=== PATIENT | female | born 1950 | race Caucasian/White ===

== ENCOUNTER 2016-12-23 07:39 | Day surgery (SDC) | payer BC ==
[2016-12-23] MEDS ORDERED: fentaNYL 100 MCG/2 ML SDV ONE (07:52)
[2016-12-23] MEDS ORDERED: Midazolam 1 MG/ML 2 ML SDV ONE (07:52)
[2016-12-23] MEDS ORDERED: Propofol 200 MG/20 ML SDV ONE (07:52)
[2016-12-23] MEDS ORDERED: Lidocaine 1% 2 ML ONE (08:53)
[2016-12-23] MEDS ORDERED: Lactated Ringers 1,000 ML IV SCH (09:00)
[2016-12-23 10:29] VITALS: BP 146/89
--- NOTE | 2016-12-23 14:59 | OR ---
DATE OF PROCEDURE: 12/23/2016 PREOPERATIVE DIAGNOSIS: Colon cancer screening. POSTOPERATIVE DIAGNOSIS: Diverticulosis. PROCEDURE: Colonoscopy to the cecum. ANESTHESIA: IV anesthesia with monitored anesthesia care. INDICATIONS: This 66-year-old white female is referred for a colonoscopy for colon cancer screening. She says her last colonoscopic exam was done 10 years ago. I counseled her for the procedure including risks and alternatives, and she gave her informed consent to proceed. DESCRIPTION OF PROCEDURE: The patient was placed in the left lateral decubitus position. IV anesthesia was administered by the Anesthesia Service. Time-out was held. A rectal exam was performed, which was unremarkable. The flexible video Olympus colonoscope was introduced through her anus, up her rectum, and out her colon all the way to the cecum. En route, we saw a few scattered left-sided diverticula. Once the cecum was reached, the scope was slowly withdrawn examining the mucosa throughout. No mucosal abnormalities were noted, other than the left-sided diverticula. There was no bleeding or inflammation associated with any of them. The scope was retroflexed in the rectum with the distal rectum appearing unremarkable. The scope was straightened and removed. She tolerated the procedure well. Alberto Claros MD /[id number]
== END 2016-12-23 10:55 | disposition home or self-care (01) ==
LOC: JP.SDS 07:39
PROVIDERS: ATTEND Surgery
DX: Z12.11 Encounter for screening for malignant neoplasm of colon (principal); K57.30 Diverticulosis of large intestine without perforation or abscess without bleeding; I10 Essential (primary) hypertension; K21.9 Gastro-esophageal reflux disease without esophagitis; Z86.73 Personal history of transient ischemic attack (TIA), and cerebral infarction without residual deficits; E11.9 Type 2 diabetes mellitus without complications
CPT/HCPCS: 45378; J2250; J2704; J3010; J7120

== ENCOUNTER 2023-04-17 17:07 | Inpatient (IN) | payer MEDICARE ==
[~2023-04-17 17:07] MED LIST: Non-Formulary Medication 1 Each (Brimonidine [Alphagan P 0.1% Ophth Soln] 10 ML Bottle) OP SCH
[2023-04-17] MEDS ORDERED: Sodium Chloride 0.9% 10 ML Syringe FLUSH PRN (18:22)
[2023-04-17] MEDS ORDERED: Ondansetron 4 MG/2 ML SDV IVPUSH ONE (18:24)
[2023-04-17] MEDS ORDERED: Sodium Chloride 0.9% 1,000 ML IV SCH (18:30)
[2023-04-17 18:43] LABS: BASOPHILS ABSOLUTE AUTO 0.03 K/uL (0.00-0.10); BASOPHILS PERCENT AUTO 0.2 % (0.1-1.3); EOSINOPHILS ABSOLUTE AUTO 0.23 K/uL (0.00-0.40); EOSINOPHILS PERCENT AUTO 1.5 % (0.0-5.4); HEMATOCRIT 47.9 % (34.3-46.0); HEMOGLOBIN 16.6 g/dL (11.2-15.5); IMMATURE GRAN ABSOLUTE AUTO 0.07 K/uL (0.00-0.23); IMMATURE GRAN PERCENT AUTO 0.4 % (0.0-0.7); LYMPHOCYTES PERCENT AUTO 14.1 % (11.4-47.7); MEAN CORPUSCULAR HEMOGLOBIN 28.9 pg (31.6-35.5); MEAN CORPUSCULAR HGB CONC 34.7 g/dL (31.6-35.5); MEAN CORPUSCULAR VOLUME 83.4 fL (81.4-99.0); MONOCYTES ABSOLUTE AUTO 1.19 K/uL (0.20-0.90); MONOCYTES PERCENT AUTO 7.6 % (3.3-12.6); NEUTROPHILS ABSOLUTE AUTO 11.84 K/uL (1.0-7.6); NEUTROPHILS PERCENT AUTO 76.2 % (40.0-78.1); PLATELET COUNT,PLT 337 K/uL (130-375); RED BLOOD CELL COUNT 5.74 M/uL (3.77-5.24); WHITE BLOOD CELL COUNT,WBC 15.6 K/uL (3.2-11.0)
[2023-04-17 19:03] LABS: PROTHROMBIN TIME 10.3 sec (9.2-10.6); PTT,PARTIAL THROMBOPLSTIN TIME 24.3 sec (21.8-27.3)
[2023-04-17 19:04] LABS: ALANINE AMINOTRANSFERASE,ALT 31 U/L (12-78); ALBUMIN 3.7 g/dL (3.4-5.0); ALKALINE PHOSPHATASE 82 U/L (46-116); ASPARTATE AMNIOTRANSFERASE,AST 20 U/L (15-37); BILIRUBIN TOTAL 0.5 mg/dL (0.2-1.0); BLOOD UREA NITROGEN,BUN 14 mg/dL (7-18); C-REACTIVE PROTEIN 2.37 mg/dL (0.0-0.3); CALCIUM 8.9 mg/dL (8.5-10.1); CARBON DIOXIDE,CO2 24 mmol/L (21-32); CHLORIDE,CL 99 mmol/L (100-108); CREATININE 0.7 mg/dL (0.6-1.0); EST CRCL DRUG DOSING (CG) 66.33 mL/min; ESTIMATED GFR 92 mL/min (>60); GLUCOSE RANDOM 164 mg/dL (74-106); POTASSIUM,K 3.5 mmol/L (3.6-5.2); PROTEIN TOTAL,TP 7.3 g/dL (6.4-8.2); SODIUM,NA 136 mmol/L (140-148)
[2023-04-17 19:05] LABS: ANION GAP 16.5 mmol/L (5.0-14.0)
[2023-04-17] MEDS ORDERED: Iopamidol 612 MG/ML 100 ML Bottle IV SCH (19:15)
[2023-04-17] MEDS ORDERED: Sodium Chloride 0.9% 50 ML IV SCH (19:15)
[2023-04-17 20:15] LABS: LACTIC ACID 1.1 mmol/L (0.4-2.0)
[2023-04-17] MEDS ORDERED: Acetaminophen 325 MG Tab PO ONE (20:29)
[2023-04-17] MEDS ORDERED: Ondansetron 4 MG Tab.DIS PO PRN (22:21)
[2023-04-17] MEDS ORDERED: Naloxone 0.4 MG/ML SDV IVPUSH PRN (22:21)
[2023-04-17] MEDS ORDERED: Morphine 2 MG/ML SYRINGE IVPUSH PRN (22:21)
[2023-04-17] MEDS ORDERED: Ketotifen 0.025% Ophth Soln 5 ML Bottle EYEBOTH PRN (22:27)
[2023-04-17] MEDS ORDERED: Albuterol 6.7 GM Inhaler INH PRN (22:27)
[2023-04-17] MEDS ORDERED: valACYclovir 1,000 MG Tab PO PRN (22:27)
[2023-04-17] MEDS: Temazepam 15 MG Cap PO PRN (23:35)
[2023-04-17] MEDS: Pantoprazole 40 MG Vial IV SCH (23:35)
[2023-04-17] MEDS: Latanoprost 0.005% Ophth Soln 2.5 ML Bottle EYEBOTH SCH (23:48)
[2023-04-17] MEDS: Sodium Chloride 0.9% 1,000 ML IV SCH (23:52)
[2023-04-18] MEDS: Acetaminophen/HYDROcodone 325-5 MG Tab PO PRN ×3 (00:19→13:15)
[2023-04-18] MEDS: diphenhydrAMINE 25 MG Cap PO PRN ×3 (00:19→13:18)
[2023-04-18 06:01] LABS: BASOPHILS ABSOLUTE AUTO 0.04 K/uL (0.00-0.10); BASOPHILS PERCENT AUTO 0.4 % (0.1-1.3); EOSINOPHILS ABSOLUTE AUTO 0.46 K/uL (0.00-0.40); EOSINOPHILS PERCENT AUTO 4.3 % (0.0-5.4); HEMATOCRIT 41.5 % (34.3-46.0); HEMOGLOBIN 14.2 g/dL (11.2-15.5); IMMATURE GRAN ABSOLUTE AUTO 0.05 K/uL (0.00-0.23); IMMATURE GRAN PERCENT AUTO 0.5 % (0.0-0.7); LYMPHOCYTES ABSOLUTE AUTO 2.52 K/uL (0.8-3.3); LYMPHOCYTES PERCENT AUTO 23.8 % (11.4-47.7); MEAN CORPUSCULAR HEMOGLOBIN 29.2 pg (31.6-35.5); MEAN CORPUSCULAR HGB CONC 34.2 g/dL (31.6-35.5); MEAN CORPUSCULAR VOLUME 85.4 fL (81.4-99.0); MONOCYTES ABSOLUTE AUTO 0.79 K/uL (0.20-0.90); MONOCYTES PERCENT AUTO 7.4 % (3.3-12.6); NEUTROPHILS ABSOLUTE AUTO 6.75 K/uL (1.0-7.6); NEUTROPHILS PERCENT AUTO 63.6 % (40.0-78.1); PLATELET COUNT,PLT 269 K/uL (130-375); RED BLOOD CELL COUNT 4.86 M/uL (3.77-5.24); WHITE BLOOD CELL COUNT,WBC 10.6 K/uL (3.2-11.0)
[2023-04-18 06:19] LABS: CALCIUM 7.8 mg/dL (8.5-10.1); CREATININE 0.7 mg/dL (0.6-1.0); EST CRCL DRUG DOSING (CG) 66.33 mL/min; POTASSIUM,K 3.2 mmol/L (3.6-5.2)
[2023-04-18 06:23] LABS: ANION GAP 12.2 mmol/L (5.0-14.0)
[2023-04-18] MEDS: Insulin Lispro 100 Unit/ML 3 ML KwikPen SUBCUT SCH ×4 (07:20→21:12)
[2023-04-18] MEDS ORDERED: Albuterol 6.7 GM Inhaler INH PRN (07:56)
[2023-04-18] MEDS ORDERED: Levothyroxine 88 MCG Tab PO SCH (09:00)
[2023-04-18] MEDS: Ondansetron 4 MG/2 ML SDV IV PRN (09:00)
[2023-04-18] MEDS: Enoxaparin 40 MG/0.4 ML Syringe SUBCUT SCH (09:04)
[2023-04-18] MEDS: Levothyroxine 88 MCG Tab PO SCH (09:05)
[2023-04-18] MEDS: metroNIDAZOLE/Normal Saline 500 MG in Premix Bag 1 BAG IV SCH ×2 (09:05→18:09)
[2023-04-18] MEDS: Potassium Chloride 10 MEQ Cap.ER PO SCH (09:06)
[2023-04-18] MEDS: amLODIPine 5 MG Tab PO SCH (09:08)
[2023-04-18] MEDS: Sodium Chloride 0.9% 1,000 ML IV SCH ×2 (09:15→17:27)
[2023-04-18] MEDS: Triamcinolone Acetonide 0.1% Crm 15 GM Tube TOP PRN ×2 (10:27→19:24)
[2023-04-18] MEDS: cefTRIAXone 1 GM in Sodium Chloride 0.9% 50 ML IV SCH ×2 (10:28→21:12)
[2023-04-18] MEDS: Potassium Chloride 10 MEQ in Premix Bag 1 BAG IV SCH ×4 (12:11→16:35)
[2023-04-18] MEDS: BRIMONIDINE EYEBOTH SCH ×2 (12:58→21:13)
[2023-04-18] MEDS: EXEMESTANE 25 MG PO SCH (12:59)
[2023-04-18] MEDS ORDERED: TRULICITY 0.75 MG/0.5 ML SUBCUT SCH (13:00)
[2023-04-18] MEDS ORDERED: Docusate Sodium 100 MG Cap PO ONE (20:02)
[2023-04-18] MEDS: Pantoprazole 40 MG Vial IV SCH (21:12)
[2023-04-18] MEDS: Latanoprost 0.005% Ophth Soln 2.5 ML Bottle EYEBOTH SCH (21:14)
[2023-04-18] MEDS: Temazepam 15 MG Cap PO PRN (21:36)
[2023-04-19] MEDS: metroNIDAZOLE/Normal Saline 500 MG in Premix Bag 1 BAG IV SCH ×3 (01:00→16:17)
[2023-04-19] MEDS: Sodium Chloride 0.9% 1,000 ML IV SCH ×2 (02:54→10:43)
[2023-04-19 03:16] LABS: HEMATOCRIT 39.3 % (34.3-46.0); HEMOGLOBIN 13.1 g/dL (11.2-15.5); MEAN CORPUSCULAR HEMOGLOBIN 28.7 pg (31.6-35.5); MEAN CORPUSCULAR HGB CONC 33.3 g/dL (31.6-35.5); MEAN CORPUSCULAR VOLUME 86.2 fL (81.4-99.0); RED BLOOD CELL COUNT 4.56 M/uL (3.77-5.24); WHITE BLOOD CELL COUNT,WBC 7.2 K/uL (3.2-11.0)
[2023-04-19 03:27] LABS: CALCIUM 7.6 mg/dL (8.5-10.1); CREATININE 0.6 mg/dL (0.6-1.0); EST CRCL DRUG DOSING (CG) 77.38 mL/min; POTASSIUM,K 3.2 mmol/L (3.6-5.2)
[2023-04-19 03:31] LABS: ANION GAP 12.2 mmol/L (5.0-14.0)
[2023-04-19] MEDS: Acetaminophen/HYDROcodone 325-5 MG Tab PO PRN ×2 (04:05→21:41)
[2023-04-19] MEDS: diphenhydrAMINE 25 MG Cap PO PRN ×2 (04:05→21:41)
[2023-04-19] MEDS: Ondansetron 4 MG/2 ML SDV IV PRN ×2 (07:25→17:16)
[2023-04-19] MEDS: Insulin Lispro 100 Unit/ML 3 ML KwikPen SUBCUT SCH ×4 (08:22→21:04)
[2023-04-19] MEDS: Enoxaparin 40 MG/0.4 ML Syringe SUBCUT SCH (09:16)
[2023-04-19] MEDS: EXEMESTANE 25 MG PO SCH (09:17)
[2023-04-19] MEDS: BRIMONIDINE EYEBOTH SCH ×2 (09:17→21:45)
[2023-04-19] MEDS: Potassium Chloride 10 MEQ Cap.ER PO SCH (09:17)
[2023-04-19] MEDS: amLODIPine 5 MG Tab PO SCH (09:17)
[2023-04-19] MEDS: Levothyroxine 88 MCG Tab PO SCH (09:18)
[2023-04-19] MEDS ORDERED: Potassium Chloride 20 MEQ Tab.ER PO ONE (10:00)
[2023-04-19] MEDS: cefTRIAXone 1 GM in Sodium Chloride 0.9% 50 ML IV SCH ×2 (10:41→21:52)
[2023-04-19] MEDS: Potassium Chloride 10 MEQ in Premix Bag 1 BAG IV SCH ×4 (11:28→21:55)
[2023-04-19] MEDS ORDERED: Sodium Chloride 0.9% 1,000 ML IV SCH (12:30)
[2023-04-19] MEDS: Triamcinolone Acetonide 0.1% Crm 15 GM Tube TOP PRN ×2 (14:10→19:52)
[2023-04-19] MEDS: Temazepam 15 MG Cap PO PRN (21:41)
[2023-04-19] MEDS: Pantoprazole 40 MG Vial IV SCH (21:44)
[2023-04-19] MEDS: Latanoprost 0.005% Ophth Soln 2.5 ML Bottle EYEBOTH SCH (21:47)
[2023-04-20] MEDS: metroNIDAZOLE/Normal Saline 500 MG in Premix Bag 1 BAG IV SCH ×3 (01:52→16:05)
[2023-04-20] MEDS: Insulin Lispro 100 Unit/ML 3 ML KwikPen SUBCUT SCH ×4 (07:40→21:09)
[2023-04-20] MEDS: Ondansetron 4 MG/2 ML SDV IV PRN (07:50)
[2023-04-20 07:52] LABS: CALCIUM 8.7 mg/dL (8.5-10.1); CREATININE 0.7 mg/dL (0.6-1.0); EST CRCL DRUG DOSING (CG) 66.33 mL/min; POTASSIUM,K 3.5 mmol/L (3.6-5.2)
[2023-04-20 07:57] LABS: ANION GAP 14.5 mmol/L (5.0-14.0)
[2023-04-20] MEDS: Levothyroxine 88 MCG Tab PO SCH (08:32)
[2023-04-20] MEDS: amLODIPine 5 MG Tab PO SCH (08:33)
[2023-04-20] MEDS: Potassium Chloride 10 MEQ Cap.ER PO SCH (08:33)
[2023-04-20] MEDS: Enoxaparin 40 MG/0.4 ML Syringe SUBCUT SCH (08:33)
[2023-04-20] MEDS: BRIMONIDINE EYEBOTH SCH ×2 (08:34→21:54)
[2023-04-20] MEDS: Potassium Chloride 10 MEQ in Premix Bag 1 BAG IV SCH ×2 (09:45→10:32)
[2023-04-20] MEDS: EXEMESTANE 25 MG PO SCH (09:45)
[2023-04-20] MEDS ORDERED: Potassium Chloride 20 MEQ, Lidocaine 1% 2 ML in Sodium Chloride 0.9% 100 ML IV ONE (11:00)
[2023-04-20] MEDS: cefTRIAXone 1 GM in Sodium Chloride 0.9% 50 ML IV SCH ×2 (11:43→21:56)
[2023-04-20] MEDS ORDERED: LIDOCAINE 1% IV ONE (14:00)
[2023-04-20] MEDS ORDERED: SODIUM CHLORIDE 0.9% IV ONE (14:00)
[2023-04-20] MEDS ORDERED: POTASSIUM CHLORIDE IV ONE (14:00)
[2023-04-20] MEDS: Acetaminophen 325 MG Tab PO PRN (16:48)
[2023-04-20] MEDS: diphenhydrAMINE 25 MG Cap PO PRN ×2 (16:48→21:55)
[2023-04-20] MEDS: Pantoprazole 40 MG Vial IV SCH (21:48)
[2023-04-20] MEDS: Acetaminophen/HYDROcodone 325-5 MG Tab PO PRN (21:55)
[2023-04-20] MEDS: Latanoprost 0.005% Ophth Soln 2.5 ML Bottle EYEBOTH SCH (21:55)
[2023-04-20] MEDS: Temazepam 15 MG Cap PO PRN (21:55)
[2023-04-21] MEDS: metroNIDAZOLE/Normal Saline 500 MG in Premix Bag 1 BAG IV SCH ×2 (01:48→09:49)
[2023-04-21] MEDS: Acetaminophen 325 MG Tab PO PRN ×2 (06:54→15:16)
[2023-04-21] MEDS: Insulin Lispro 100 Unit/ML 3 ML KwikPen SUBCUT SCH ×4 (07:34→21:22)
[2023-04-21] MEDS: Ondansetron 4 MG/2 ML SDV IV PRN (07:47)
[2023-04-21] MEDS: Levothyroxine 88 MCG Tab PO SCH (08:34)
[2023-04-21] MEDS: amLODIPine 5 MG Tab PO SCH (08:45)
[2023-04-21] MEDS: Potassium Chloride 10 MEQ Cap.ER PO SCH (08:51)
[2023-04-21] MEDS: EXEMESTANE 25 MG PO SCH (08:53)
[2023-04-21] MEDS: Enoxaparin 40 MG/0.4 ML Syringe SUBCUT SCH (08:54)
[2023-04-21] MEDS ORDERED: Potassium Chloride 10 MEQ in Premix Bag 1 BAG IV SCH (09:00)
[2023-04-21] MEDS: BRIMONIDINE EYEBOTH SCH ×2 (09:52→21:32)
[2023-04-21] MEDS: diphenhydrAMINE 25 MG Cap PO PRN ×2 (09:58→21:36)
[2023-04-21] MEDS: Acetaminophen/HYDROcodone 325-5 MG Tab PO PRN ×2 (10:38→21:36)
[2023-04-21] MEDS: cefTRIAXone 1 GM in Sodium Chloride 0.9% 50 ML IV SCH (10:55)
[2023-04-21] MEDS: Triamcinolone Acetonide 0.1% Crm 15 GM Tube TOP PRN (11:24)
[2023-04-21] MEDS: Potassium Chloride 20 MEQ, Lidocaine 1% 2 ML in Sodium Chloride 0.9% 100 ML IV SCH ×2 (11:25→13:44)
[2023-04-21] MEDS: metroNIDAZOLE 250 MG Tab PO SCH ×2 (17:31→21:32)
[2023-04-21] MEDS ORDERED: Pantoprazole 40 MG Tab.CR PO SCH (21:00)
[2023-04-21] MEDS: Docusate Sodium 100 MG Cap PO SCH (21:32)
[2023-04-21] MEDS: Cefdinir 300 MG Cap PO SCH (21:32)
[2023-04-21] MEDS: Latanoprost 0.005% Ophth Soln 2.5 ML Bottle EYEBOTH SCH (21:32)
[2023-04-21] MEDS: Temazepam 15 MG Cap PO PRN (21:37)
[2023-04-22] MEDS: Acetaminophen 325 MG Tab PO PRN (02:16)
[2023-04-22] MEDS: metroNIDAZOLE 250 MG Tab PO SCH ×2 (04:56→09:16)
[2023-04-22] MEDS: Acetaminophen/HYDROcodone 325-5 MG Tab PO PRN (05:06)
[2023-04-22] MEDS: diphenhydrAMINE 25 MG Cap PO PRN (05:11)
[2023-04-22] MEDS: Levothyroxine 88 MCG Tab PO SCH (09:13)
[2023-04-22] MEDS: Docusate Sodium 100 MG Cap PO SCH (09:13)
[2023-04-22] MEDS: Cefdinir 300 MG Cap PO SCH (09:13)
[2023-04-22] MEDS: Enoxaparin 40 MG/0.4 ML Syringe SUBCUT SCH (09:13)
[2023-04-22] MEDS: amLODIPine 5 MG Tab PO SCH (09:14)
[2023-04-22] MEDS: Potassium Chloride 10 MEQ Cap.ER PO SCH (09:14)
[2023-04-22] MEDS: EXEMESTANE 25 MG PO SCH (09:14)
[2023-04-22] MEDS: BRIMONIDINE EYEBOTH SCH (09:14)
[2023-04-22] MEDS: Insulin Lispro 100 Unit/ML 3 ML KwikPen SUBCUT SCH ×2 (09:19→13:24)
[2023-04-22 11:17] VITALS: BP 129/76; PULSE 72
[2023-04-24] MEDS ORDERED: TRULICITY 0.75 MG/0.5 ML SUBCUT SCH (09:00)
== END 2023-04-22 13:26 | disposition home or self-care (01) | DRG 392 ==
LOC: JP.ED 17:07 → JP.MS 21:24
PROVIDERS: ADMIT Internal Medicine; ATTEND Hospitalist
DX: K52.9 Noninfective gastroenteritis and colitis, unspecified (principal); T81.49XA Infection following a procedure, other surgical site, initial encounter; E86.0 Dehydration; I10 Essential (primary) hypertension; K59.09 Other constipation; M19.90 Unspecified osteoarthritis, unspecified site; Z20.822 Contact with and (suspected) exposure to COVID-19; E11.3553 Type 2 diabetes mellitus with stable proliferative diabetic retinopathy, bilateral; E03.9 Hypothyroidism, unspecified; Z79.899 Other long term (current) drug therapy; Z88.5 Allergy status to narcotic agent; Z88.8 Allergy status to other drugs, medicaments and biological substances; Z88.2 Allergy status to sulfonamides; Z79.82 Long term (current) use of aspirin; Z79.84 Long term (current) use of oral hypoglycemic drugs; Z90.710 Acquired absence of both cervix and uterus; Z86.73 Personal history of transient ischemic attack (TIA), and cerebral infarction without residual deficits; Z85.41 Personal history of malignant neoplasm of cervix uteri; Z85.3 Personal history of malignant neoplasm of breast; Z90.12 Acquired absence of left breast and nipple; Z90.722 Acquired absence of ovaries, bilateral; Z90.79 Acquired absence of other genital organ(s); Z98.890 Other specified postprocedural states
CPT/HCPCS: 36415; 74177; 80053; 82272; 83605; 85025; 85610; 85730; 86140; 87046; 87493; 87899 ×2; 96361; 96374; 99285; A9270 ×2; J2405; J3490 ×2; J7030; Q9967; U0002; 80048; 82947; 84132; 85027; 99222; 99232; 99238; C9113; J0696; J1650; J1815; J3480